=== PATIENT | female | born 1940 | race African-American/Black ===

== ENCOUNTER 2016-09-07 07:31 | Day surgery (SDC) | payer OTHER ==
[2016-09-06 11:39] VITALS: BMI 23.8
[~2016-09-07 07:31] MED LIST: ACETAMINOPHEN 325 MG TABLET (FP) PO PRN
[2016-09-07] MEDS ORDERED: CYCLOPENTOLATE HCL 1% OPHTH SOLN 2 ML BOTTLE ONE (08:16)
[2016-09-07] MEDS ORDERED: CIPROFLOXACIN 0.3% EYE DROPS 5 ML BOTTLE ONE (08:16)
[2016-09-07] MEDS ORDERED: FLURBIPROFEN 0.03% OPHTH SOLN 2.5 ML BOTTLE ONE (08:16)
[2016-09-07] MEDS ORDERED: TROPICAMIDE 1% OPHTH SOLN 15 ML BOTTLE ONE (08:16)
[2016-09-07] MEDS ORDERED: PHENYLEPHRINE 2.5% OPHTH SOLN 15 ML BOTTLE ONE (08:17)
[2016-09-07] MEDS: PHENYLEPHRINE 2.5% OPHTH SOLN 15 ML BOTTLE OP SCH ×2 (08:30→08:35)
[2016-09-07] MEDS: CIPROFLOXACIN HCL 0.3% OPHTH 2.5ML BOTTLE OP SCH ×2 (08:30→08:35)
[2016-09-07] MEDS: CYCLOPENTOLATE HCL 1% OPHTH SOLN 2 ML BOTTLE OP SCH ×2 (08:30→08:35)
[2016-09-07] MEDS: FLURBIPROFEN 0.03% OPHTH SOLN 2.5 ML BOTTLE OP SCH ×2 (08:30→08:35)
[2016-09-07] MEDS: TROPICAMIDE 1% OPHTH SOLN 15 ML BOTTLE OP SCH ×2 (08:30→08:35)
[2016-09-07] MEDS ORDERED: MIDAZOLAM HCL 2 MG/2 ML SINGLE DOSE VIAL ONE (09:45)
[2016-09-07] MEDS ORDERED: PROPOFOL 20 ML ONE (09:45)
[2016-09-07] MEDS ORDERED: LIDOCAINE HCL 2% JELLY (5 ML/TUBE) TP ONE (09:50)
[2016-09-07] MEDS ORDERED: BUPIVACAINE HCL/PF 0.75% 10 ML VIAL RB ONE (10:16)
[2016-09-07] MEDS ORDERED: LIDOCAINE HCL/PF 2% SDV 5ML VIAL INF ONE (10:16)
[2016-09-07] MEDS ORDERED: POVIDONE-IODINE 5% OPHTHALMIC PREP 30 ML SOLUTION OS ONE (10:19)
[2016-09-07] MEDS ORDERED: BSS (NA/CA/MG/K) BALANCED SALT SOLUTION OPHTH SOLN 15 ML BOTTLE OS ONE (10:19)
[2016-09-07] MEDS ORDERED: TRYPAN BLUE 0.5 ML DISP.SYRIN IO ONE (10:27)
[2016-09-07] MEDS ORDERED: LIDOCAINE HCL 1% PRESERVATIVE FREE - 30ML VIAL IO ONE (10:27)
[2016-09-07] MEDS ORDERED: CHONDROITIN SU A/HYALUR SOD 1 KIT IO ONE (10:27)
[2016-09-07] MEDS ORDERED: EPINEPHrine/PF 1 MG/1 ML (1:1,000) AMPULE IO ONE (10:34)
[2016-09-07 12:52] VITALS: BP 135/65; PULSE 63; TEMP 97
--- NOTE | 2016-09-08 07:06 | OP ---
DATE OF OPERATION: 09/07/2016 SURGEON: Heaven Martins M.D. PREOPERATIVE DIAGNOSIS: Cataract, left eye. Associated diagnosis anxiety. POSTOPERATIVE DIAGNOSIS: Cataract, left eye. Associated diagnosis anxiety. OPERATION: Phacoemulsification of left cataract with posterior chamber intraocular lens implantation. Capsule stained with trypan blue. Lens used [id number], 19.5 diopter power, serial No. [id number]. ANESTHESIA: Peribulbar/modified lens/MAC COMPLICATIONS: None. PROCEDURE: The patient was brought to the operating room and correctly identified along with the operative site as well as correct intraocular lens ro. She was then given a peribulbar block under sedation with 5 mL of a 1:1 mixture of 2% Lidocaine and 0.75% bupivacaine. Two to 3 mL of the same mixture was given as a modified Van Lint block. The eye was then prepped and draped in the usual sterile fashion including 5% Betadine solution in the conjunctival sac and an eyelid drape. An eyelid speculum was then placed into the left eye. The eye was inspected, and a 5.5-mm pupil was noted. A paracentesis port was created, and intracameral Lidocaine 1% preservative-free was given, as well, approximately 0.5 mL. Beneath an air bubble, the capsule was then stained with Trypan blue. Viscoelastic was injected to inflate the anterior chamber, and a temporal clear corneal wound was created. A continuous circular capsulorrhexis was performed, and a nucleus was hydro- dissected with BSS and removed with phacoemulsification via [id number] approach. The cortical material was irrigated and aspirated from the eye. Viscoelastic was injected to inflate the capsular bag. The lens was injected into the capsular bag. Viscoelastic was irrigated and aspirated from the eye. All wounds were inspected and found to be watertight. The intraocular lens was noted to be well centered and covered by the anterior capsular border. No suture was placed. Topical Vancomycin was given, the eye patched and shielded, and the patient was discharged from the operating room in a stable condition. Throughout the procedure, however, the patient was noted to jerk her hands and head, despite being given further sedation. HEAVEN MARTINS M.D. [id number] MTDD
== END 2016-09-07 11:55 | disposition home or self-care (01) ==
LOC: JASU-SURG 07:31
PROVIDERS: ATTEND Ophthalmology
PROC: 08RK3JZ Replacement of Left Lens with Synthetic Substitute, Percutaneous Approach (ICD-10-PCS; principal; 2016-09-07 10:00)
DX: H26.9 Unspecified cataract (principal); F41.9 Anxiety disorder, unspecified

== ENCOUNTER 2016-10-26 08:35 | Day surgery (SDC) | payer OTHER ==
[2016-10-25 13:11] VITALS: BMI 23.8
[2016-10-26] MEDS ORDERED: FLURBIPROFEN 0.03% OPHTH SOLN 2.5 ML BOTTLE ONE (08:56)
[2016-10-26] MEDS ORDERED: CIPROFLOXACIN 0.3% EYE DROPS 5 ML BOTTLE ONE (08:57)
[2016-10-26] MEDS ORDERED: CYCLOPENTOLATE HCL 1% OPHTH SOLN 2 ML BOTTLE ONE (08:57)
[2016-10-26] MEDS ORDERED: PHENYLEPHRINE 2.5% OPHTH SOLN 15 ML BOTTLE ONE (08:57)
[2016-10-26] MEDS ORDERED: TROPICAMIDE 1% OPHTH SOLN 15 ML BOTTLE ONE (08:57)
[2016-10-26] MEDS: FLURBIPROFEN 0.03% OPHTH SOLN 2.5 ML BOTTLE OP SCH ×3 (09:00→09:27)
[2016-10-26] MEDS: TROPICAMIDE 1% OPHTH SOLN 15 ML BOTTLE OP SCH ×3 (09:00→09:27)
[2016-10-26] MEDS: CIPROFLOXACIN HCL 0.3% OPHTH 2.5ML BOTTLE OP SCH ×3 (09:00→09:27)
[2016-10-26] MEDS: CYCLOPENTOLATE HCL 1% OPHTH SOLN 2 ML BOTTLE OP SCH ×3 (09:00→09:27)
[2016-10-26] MEDS: PHENYLEPHRINE 2.5% OPHTH SOLN 15 ML BOTTLE OP SCH ×3 (09:00→09:27)
[2016-10-26 09:11] VITALS: TEMP 97.7
[2016-10-26] MEDS ORDERED: MIDAZOLAM HCL 2 MG/2 ML SINGLE DOSE VIAL ONE (09:41)
[2016-10-26] MEDS ORDERED: PROPOFOL 20 ML ONE ×2 (09:41)
[2016-10-26] MEDS ORDERED: LIDOCAINE HCL/PF 2% SDV 5ML VIAL ONE (09:41)
[2016-10-26] MEDS ORDERED: LIDOCAINE HCL/PF 2% SDV 5ML VIAL INF ONE (09:47)
[2016-10-26] MEDS ORDERED: BUPIVACAINE HCL/PF 0.75% 10 ML VIAL RB ONE (09:47)
[2016-10-26] MEDS ORDERED: POVIDONE-IODINE 5% OPHTHALMIC PREP 30 ML SOLUTION OD ONE (09:53)
[2016-10-26] MEDS ORDERED: BSS (NA/CA/MG/K) BALANCED SALT SOLUTION OPHTH SOLN 15 ML BOTTLE OD ONE (10:00)
[2016-10-26] MEDS ORDERED: LIDOCAINE HCL 1% PRESERVATIVE FREE - 30ML VIAL IO ONE (10:00)
[2016-10-26] MEDS ORDERED: CHONDROITIN SU A/HYALUR SOD 1 KIT IO ONE (10:00)
[2016-10-26] MEDS ORDERED: EPINEPHrine/PF 1 MG/1 ML (1:1,000) AMPULE IO ONE (10:06)
[2016-10-26 10:43] VITALS: PULSE 74
[2016-10-26 12:32] VITALS: BP 133/62
--- NOTE | 2016-10-26 15:06 | SPEC ---
DATE OF OPERATION: DATE OF DICTATION: 10/26/2016 OPERATION: Phacoemulsification with posterior chamber intraocular lens implantation, right eye, lens used SN60WF, 20.5 diopter, serial no. [id number]. PREOPERATIVE DIAGNOSIS: Cataract right eye. POSTOPERATIVE DIAGNOSIS: Cataract right eye. SURGEON: Heaven Martins M.D. ANESTHESIA: Peribulbar/Modified Van Lint/MAC. COMPLICATIONS: None. PROCEDURE: The patient was brought to the operating room and correctly identified along with the operative site and a correct intraocular lens ro. The patient was then given a peribulbar block under sedation with 5 mL of a 1:1 mixture of 2% lidocaine and 0.5% bupivacaine. Two to 3 mL of the same mixture was given as a modified Van Lint block. The eye was then prepped and draped in the usual sterile fashion including 5% Betadine solution in the conjunctival sac and an eyelid drape. An eyelid speculum was then placed into the eye. A paracentesis port was created. Viscoelastic was injected to inflate the anterior chamber. A temporal clear corneal wound was created. A continuous circular capsulorrhexis was performed. The nucleus was then hydro-dissected and removed phacoemulsification via the [id number] approach. The remaining cortical material was irrigated and aspirated from the eye. Viscoelastic was injected to inflate the capsular bag. The lens was injected into the capsular bag. Viscoelastic was then irrigated and aspirated from the eye. The intraocular lens was noted to be well centered and covered by the anterior capsular border. All wounds were found to be watertight. Topical Vancomycin was given. The eye patch and shield were placed. The patient was discharged from the operating room in stable condition. HEAVEN MARTINS M.D. [id number]
== END 2016-10-26 12:34 | disposition home or self-care (01) ==
LOC: JASU-SURG 08:35
PROVIDERS: ATTEND Ophthalmology
PROC: 08RJ3JZ Replacement of Right Lens with Synthetic Substitute, Percutaneous Approach (ICD-10-PCS; principal; 2016-10-26 10:00)
DX: H26.9 Unspecified cataract (principal)